=== PATIENT | male | born 1950 | race Caucasian/White ===

== ENCOUNTER 2016-07-28 11:01 | Day surgery (SDC) | payer OTHER ==
--- NOTE | 2016-07-27 10:28 | PCM.PREANE ---
Preanesthetic Assessment - ANESTHESIA/TRANSFUSION/FAMILY HX Anesthesia/Transfusion History: No Prior Transfusion(s), Prior Anesthesia Family History of Anesthesia Reaction: No - PHYSICAL ASSESSMENT Height: 1.73 m Weight: 87.09 kg ASA Class: 2 - ALLERGIES Allergies/Adverse Reactions: Allergies Allergy/AdvReac Type Severity Reaction Status Date / Time No Known Allergies Allergy Verified 08/25/14 13:09 - BLOOD Blood Available: No - ANESTHESIA PLAN Preop Beta Arvind: No PreAnesthesia Questionnaire HEENT History: Reports: Hard of hearing Other HEENT History: alfred hearing aids Cardiovascular History: Reports: High cholesterol Gastrointestinal History: Reports: Colon polyp - Past Surgical History Head Surgeries/Procedures: Reports: None GI Surgical History: Reports: Cholecystectomy, Colonoscopy Dermatological Surgical History: Reports: Other (see below) - SUBSTANCE USE Smoking Status *Q: Current Every Day Smoker Days Per Week of Alcohol Use: 4 Number of Drinks Per Day: 2 Total Drinks Per Week: 8 Recreational Drug Use History: No - HOME MEDS Home Medications: Home Meds Ibuprofen 2 tab PO ASDIRECTED PRN 09/02/14 [History] Simvastatin [Zocor] 10 mg PO BEDTIME 09/02/14 [History] Multivitamin [Multivitamins] 1 tab PO DAILY 07/25/16 [History] - CURRENT (IN HOUSE) MEDS Current Meds: Current Medications Lactated Ringer's (Ringers, Lactated) 1,000 mls @ 125 mls/hr IV ASDIRECTED [facility] Cefazolin Sodium/Dextrose 2 gm (/ Premix) 50 mls @ 100 mls/hr IV ONETIME ONE Stop: 07/28/16 05:29
[~2016-07-28 11:01] MED LIST: Bupivacaine 0.25%/EPINEPHrine 1:200,000 10 ML SDV ONE; Lactated Ringers 1,000 ML IV SCH; ceFAZolin 2 GM in Premix Bag 1 BAG IV ONE
--- NOTE | 2016-07-28 11:52 | PCM.PREANE ---
Preanesthetic Assessment - ANESTHESIA/TRANSFUSION/FAMILY HX Anesthesia/Transfusion History: No Prior Transfusion(s), Prior Anesthesia Family History of Anesthesia Reaction: No - REVIEW OF SYSTEMS Constitutional: Reports: no symptoms [employer]: Reports: no symptoms Respiratory: Reports: no symptoms Cardiovascular: Reports: no symptoms GI: Reports: no symptoms - PHYSICAL ASSESSMENT Height: 1.73 m Weight: 87.09 kg ASA Class: 2 Mental Status: alert & oriented x3 Airway Class: Mallampati = 1 Dentition: Reports: normal dentition ROM/Head Extension: full Respiratory Status: lungs clear to auscultation bilaterally Cardiovascular Status: regular rate & rhythm, normal S1, S2 - ALLERGIES Allergies/Adverse Reactions: Allergies Allergy/AdvReac Type Severity Reaction Status Date / Time No Known Allergies Allergy Verified 08/25/14 13:09 - BLOOD Blood Available: No - ANESTHESIA PLAN Preop Beta Arvind: No Anesthesia Type Planned: MAC - ACKNOWLEDGEMENTS Pt an appropriate candidate for the planned anesthesia: Yes Alternatives and risks of anesthesia discussed w pt/guardian: Yes Pt/Guardian understands and agree with anesthesia plan: Yes PreAnesthesia Questionnaire HEENT History: Reports: Hard of hearing Other HEENT History: alfred hearing aids Cardiovascular History: Reports: High cholesterol Gastrointestinal History: Reports: Colon polyp - Past Surgical History Head Surgeries/Procedures: Reports: None GI Surgical History: Reports: Cholecystectomy, Colonoscopy Dermatological Surgical History: Reports: Other (see below) - SUBSTANCE USE Smoking Status *Q: Current Every Day Smoker Days Per Week of Alcohol Use: 4 Number of Drinks Per Day: 2 Total Drinks Per Week: 8 Recreational Drug Use History: No - HOME MEDS Home Medications: Home Meds Ibuprofen 2 tab PO ASDIRECTED PRN 09/02/14 [History] Simvastatin [Zocor] 10 mg PO BEDTIME 09/02/14 [History] Multivitamin [Multivitamins] 1 tab PO DAILY 07/25/16 [History] - CURRENT (IN HOUSE) MEDS Current Meds: Current Medications Lactated Ringer's (Ringers, Lactated) 1,000 mls @ 125 mls/hr IV ASDIRECTED RENATE Discontinued Medications Bupivacaine HCl/Epinephrine Bitart (Marcaine 0.25%/Epinephrine 1:200,000) Confirm Administered Dose 20 ml .ROUTE .STK-MED ONE Stop: 07/28/16 07:35 Cefazolin Sodium/Dextrose 2 gm (/ Premix) 50 mls @ 100 mls/hr IV ONETIME ONE Stop: 07/28/16 05:29
[2016-07-28] MEDS ORDERED: fentaNYL 100 MCG/2 ML SDV ONE ×2 (12:30→14:04)
[2016-07-28] MEDS ORDERED: Midazolam 1 MG/ML 2 ML SDV ONE (12:30)
[2016-07-28] MEDS ORDERED: Propofol 200 MG/20 ML SDV ONE (12:30)
[2016-07-28] MEDS ORDERED: Acetaminophen/oxyCODONE 325-5 MG Tab PO PRN (13:23)
[2016-07-28] MEDS ORDERED: Lidocaine 2% 5 ML SDV ONE (13:32)
[2016-07-28] MEDS ORDERED: Rocuronium 10 MG/ML 10 ML Syringe ONE (13:37)
--- NOTE | 2016-07-28 14:38 | PCM.OPNOTE ---
- General Post-Op/Procedure Note Date of Surgery/Procedure: 07/28/16 Operative Procedure(s): excisional bx of neck mass Findings: 6 X 7 cm poor encapsulated lipoma appearance, excised en bloc located just below occiput, midline; [id number] Pre Op Diagnosis: neck mass Post-Op Diagnosis: Same Anesthesia Technique: General ET tube Primary Surgeon: Smith Myrick Pathology: sent Condition: Good
--- NOTE | 2016-07-28 15:02 | PCM.POSTAN ---
POST ANESTHESIA ASSESSMENT - MENTAL STATUS Mental Status: alert, oriented - RESPIRATORY Respiratory Status: respiratory rate WNL, airway patent, O2 saturation stable - CARDIOVASCULAR CV Status: pulse rate WNL, blood pressure stable - GASTROINTESTINAL GI Status: no symptoms - PAIN Pain Score: 0 - POST OP HYDRATION Hydration Status: adequate & stable
[2016-07-28 15:47] VITALS: BP 102/74
--- NOTE | 2016-07-28 15:57 | PCM48HPAN ---
Post Anesthesia Note - EVALUATION WITHIN 48HRS OF ANESTHETIC Vital Signs in Normal Range: Yes Patient Participated in Evaluation: Yes Respiratory Function Stable: Yes Airway Patent: Yes Cardiovascular Function Stable: Yes Hydration Status Stable: Yes Pain Control Satisfactory: Yes Nausea and Vomiting Control Satisfactory: Yes Mental Status Recovered: Yes
--- NOTE | 2016-07-29 11:05 | OR ---
SURGEON: Smith Myrick MD DATE OF PROCEDURE: 07/28/2016 PREOPERATIVE DIAGNOSIS: Neck mass. POSTOPERATIVE DIAGNOSIS: Neck mass. PROCEDURE PERFORMED: Excision biopsy. COMPLICATIONS: None. FINDING: Mass is close to about 6 ounces with dimension of 6 x 7 cm, fully encapsulated mass, sent for pathology. PROCEDURE IN DETAIL: The patient was taken to the operating room and placed in a supine position. Upon induction of general endotracheal anesthesia, the patient was re-positioned in the prone position and time-out was being called. Patient identified, procedure identified and antibiotic given. Procedure was then started. Using a skin scalpel, a transverse incision right on top of the mass was made and it is a fish-mouth incision, and the redundant skin was then excised and carefully delineated the surrounding of the mass. It looked like it is a pretty large lipoma, poorly encapsulated and the mass was then excised from all the surrounding boundary and sent for pathology. Good hemostasis was achieved by using electrocautery. The mass itself looked like a lipoma with poorly encapsulated about 6 x 7 cm, probably about 6 ounces. Following extensive irrigation, the wound was then closed with a baseball stitches, running Matrix using 3-0 Ethilon and followed appropriate dressing. The patient was then repositioned in the supine position and awakened, extubated, and transferred to recovery room in a dynamically stable condition. The patient tolerated the procedure well. There were no intraoperative complications. Dr. Myrick was present throughout the whole procedure. As always, thank you for the kind referral. AMBER / TY /[id number]
== END 2016-07-28 16:10 | disposition home or self-care (01) ==
LOC: MW.SDS 11:01
PROVIDERS: ATTEND Surgery
PROC: 0JB50ZZ Excision of Left Neck Subcutaneous Tissue and Fascia, Open Approach (ICD-10-PCS; principal; 2016-07-28)
DX: D17.0 Benign lipomatous neoplasm of skin and subcutaneous tissue of head, face and neck (principal); E78.00 Pure hypercholesterolemia, unspecified; H91.90 Unspecified hearing loss, unspecified ear; Z79.899 Other long term (current) drug therapy; F17.210 Nicotine dependence, cigarettes, uncomplicated
CPT/HCPCS: 21552; 88304; J2250; J3010; J7120; 00300; J2704

== ENCOUNTER → 2016-09-19 | Outpatient (CLI) | payer OTHER ==
--- NOTE | 2016-09-19 17:26 | MR ---
EXAMINATION: MRI of the left knee HISTORY: Pain COMPARISON: None TECHNIQUE: Multiplanar and multisequence images obtained of the left knee without contrast. FINDINGS: The patellar and quadriceps tendons are intact. The ACL and the PCL are intact. The medial and lateral collateral ligament complexes are intact. There is a complex tear of the body of the me dial meniscus with extrusion. The tear extends into the posterior horn. Advanced articular cartilage loss is noted within the medial compartment with mild subchondral edema. There is truncation of the body of the lateral meniscus. Mild articular cartilage thinning is also noted within the patellofem oral compartment. There is mild edema within the superior lateral aspect of Hoffa's fat pad. There i s no significant joint effusion. There is likely a tiny ganglion cyst adjacent to the origin of the medial gastrocnemius tendon. No suspicious bone marrow signal changes noted. Osteophytes are noted m ost prominent within the medial compartment. IMPRESSION: 1. Advanced joint space narrowing and degenerative tearing of the medial meniscus with extrusion of the body. 2. Mild articular cartilage thinning within the patellofemoral compartment. 3. Edema within the superior lateral aspect of Hoffa's fat pad suggesting Mild patellar tendon later al femoral condyle friction syndrome.
== END ==
LOC: MW.MRI 13:51
DX: M25.562 Pain in left knee (principal); S83.242A Other tear of medial meniscus, current injury, left knee, initial encounter
CPT/HCPCS: 73721-26-LT; 73721-LT

== ENCOUNTER → 2016-09-27 | Outpatient (CLI) | payer OTHER ==
--- NOTE | 2016-09-27 16:24 | CR ---
EXAMINATION: Left knee HISTORY: Pain COMPARISON: MRI dated 09/27/2016 TECHNIQUE: 4 views FINDINGS/IMPRESSION: There is moderate joint space narrowing within the medial compartment. No fract ure or acute osseous abnormality noted. Trace joint effusion.
== END ==
LOC: MW.CHORTHO 07:56
PROVIDERS: ATTEND Physician Assistant
DX: M25.562 Pain in left knee (principal); M25.862 Other specified joint disorders, left knee
CPT/HCPCS: 73564-26-LT; 73564-LT